=== PATIENT | male | born 1970 | race Caucasian/White ===

== ENCOUNTER 2018-10-10 18:35 | Emergency (ER) | payer OTHER ==
[~2018-10-10] VITALS: Ht 175.3 cm; Wt 159.1 kg
[2018-10-10] MEDS ORDERED: PROAIR HFA0.09 MG/AC IH (19:34)
[2018-10-10] MEDS ORDERED: ADVIL200 MG PO (19:35)
[2018-10-10 19:43] LABS: BASO % 0.4 % (0.0-2.0); EOS # 0.1 (0.0-0.7); EOS % 1.1 % (0-4.0); GRAN # 6.3 (1.4-6.5); GRAN % 76.1 % (42.2-75.2); HEMATOCRIT 43.6 % (42.0-52.0); HEMOGLOBIN 14.3 g/dl (13.5-18.0); LYMPH # 1.1 (1.2-3.4); LYMPH % 13.8 % (20.0-51.0); MEAN CELL VOLUME 87 fl (80.0-100.0); MEAN CORPUSCULAR HEMOGLOBIN 29 pg (27.0-31.0); MEAN CORPUSCULAR HGB CONC 33 g/dl (33.0-37.0); MONO # 0.7 (0.1-0.6); MONO % 8.4 % (1.7-9.3); PLATELET COUNT 217 K/mm3 (130-400); RED BLOOD COUNT 4.99 M/mm3 (4.20-5.60); REDCELL DISTRIBUTION WIDTH-CV 12.5 % (11.5-14.5)
[2018-10-10 19:47] LABS: BILIRUBIN,TOTAL 0.4 mg/dL (0.0-1.0); C-REACTIVE PROTEIN 1.2 mg/dL (0.0-0.9); CALCIUM 9.1 mg/dL (8.4-10.2); CREATININE, serum 0.58 mg/dL (0.66-1.25); POTASSIUM 4.1 mmol/L (3.4-5.0); TOTAL PROTEIN 7.4 gm/dL (6.4-8.2)
[2018-10-10 19:49] LABS: INR 1.1 (0.8-3.0); PROTHROMBIN TIME 12.4 SECONDS (9.7-12.8)
[2018-10-10 19:52] LABS: PARTIAL THROMBOPLASTIN TIME 37.4 SECONDS (26.0-37.0)
[2018-10-10 22:30] LABS: COLLECTION METHOD CLEAN CATCH
[2018-10-10 22:36] LABS: PH 7 (5-8); SQUAMOUS EPITHELIAL 0-2 /hpf; URINE APPEARANCE Clear; URINE BACTERIA None Seen /hpf; URINE BILIRUBIN Negative (NEGATIVE); URINE BLOOD Negative (NEGATIVE); URINE COLOR Straw; URINE GLUCOSE 3+ (NEGATIVE); URINE KETONE Trace (NEGATIVE); URINE LEUKOCYTE ESTERASE Negative (NEGATIVE); URINE NITRATE Negative (NEGATIVE); URINE PROTEIN(semi-quant) Negative (NEGATIVE); URINE RBC 0-2 /hpf; URINE UROBILINOGEN Negative (NEGATIVE)
[2018-10-10] MEDS ORDERED: AMOXICILLIN 8751 TAB PO (23:28)
[2018-10-10] MEDS ORDERED: LEVEMIR FLEX100 U/ML SQ (23:28)
[2018-10-10 23:50] VITALS: BP 171/98; PULSE 103
== END 2018-10-10 23:50 | disposition home or self-care (01) ==
LOC: COL.ER 18:35
PROVIDERS: Emergency Medicine
DX: K42.9 Umbilical hernia without obstruction or gangrene (principal); E11.9 Type 2 diabetes mellitus without complications
CPT/HCPCS: J1815; J7030; Q9967

== ENCOUNTER 2018-11-09 05:57 | Day surgery (SDC) | payer OTHER ==
[~2018-11-09] VITALS: Ht 175.3 cm; Wt 149.9 kg
[~2018-11-09 05:57] MED LIST: ADVIL200 MG PO; AMOXICILLIN 8751 TAB PO; LEVEMIR FLEX100 U/ML SQ; PROAIR HFA0.09 MG/AC IH
[2018-11-09 06:44] VITALS: BP 115/47; PULSE 96; TEMP 98.3
[2018-11-09] MEDS ORDERED: BACTRIM DS 8001 TAB PO (06:59)
[2018-11-09] MEDS ORDERED: GLUCOPHAGE1000 MG PO (07:00)
[2018-11-09] MEDS ORDERED: PRINIVIL10 MG PO (07:01)
[2018-11-09] MEDS ORDERED: LIPITOR 40MG TA40 MG PO (07:01)
[2018-11-09] MEDS ORDERED: TRULICITY1.5 MG/0.5 SQ (07:01)
[2018-11-09 10:25] VITALS: BP 121/63; PULSE 87
--- NOTE | 2018-11-09 10:25 | NUR ---
TO RM 1 PER CART FROM PACU.ALERT ORIENTED X3, TALKING TO AND STAFF. ABDOMINAL BINDER OVER DRESSING. 02 SAT 96% ON 2L PER NC. C/O PAIN 4-5/10. DENIES NEED FOR PAIN MED AT THIS TIME.
[2018-11-09] MEDS ORDERED: NORCO 325 MG-7.1 TAB PO (10:32)
[2018-11-09 10:35] VITALS: TEMP 98.4
[2018-11-09 10:40] VITALS: BP 116/64; PULSE 88
--- NOTE | 2018-11-09 10:40 | NUR ---
RECEIVED WATER AND A APPLE SAUCE. PULLED SELF UP USING SIDE RAILS TO SIT UP HIGHER AND TOLERATED WELL.
[2018-11-09 10:55] VITALS: BP 114/66; PULSE 73
--- NOTE | 2018-11-09 10:55 | NUR ---
ATE 100% AND DRANK WATER RECEIVED 2ND CUP OF WATER
--- NOTE | 2018-11-09 11:00 | NUR ---
RECEIVED 3RD CUP OF WATER.
[2018-11-09 11:10] VITALS: BP 117/63; PULSE 75
--- NOTE | 2018-11-09 11:10 | NUR ---
RESTING QUIETLY RECEIVED ANOTHER CUP OF WATER
--- NOTE | 2018-11-09 11:30 | NUR ---
AMBULATED TO BATHROOM WITH STAND BY ASSIST. BINDER REMAINS IN PLACE. NO DRAINAGE NOTED
--- NOTE | 2018-11-09 11:50 | NUR ---
RECEIVED DISCHARGE INSTRUCTIONS AND VERBALIZED UNDERSTANDING. DISCONTINUED IV AND INT- CATHETER INTACT COVERED IV SITE WITH COTTON BALL AND COBAN. PATIENT GETTING DRESSED
--- NOTE | 2018-11-09 12:20 | NUR ---
DISCHARGED PER WC BY NURSING STAFF TO PRIVATE CAR IN CARE OF - [facility].
== END 2018-11-09 12:28 | disposition home or self-care (01) ==
LOC: SDCO 05:57
DX: K42.0 Umbilical hernia with obstruction, without gangrene (principal); I10 Essential (primary) hypertension; G47.30 Sleep apnea, unspecified; E78.5 Hyperlipidemia, unspecified; E11.9 Type 2 diabetes mellitus without complications; K76.0 Fatty (change of) liver, not elsewhere classified; J45.909 Unspecified asthma, uncomplicated; G47.33 Obstructive sleep apnea (adult) (pediatric); E66.01 Morbid (severe) obesity due to excess calories; Z68.43 Body mass index [BMI] 50.0-59.9, adult; Z79.84 Long term (current) use of oral hypoglycemic drugs; Z86.14 Personal history of Methicillin resistant Staphylococcus aureus infection; Z80.8 Family history of malignant neoplasm of other organs or systems; Z80.42 Family history of malignant neoplasm of prostate; Z83.3 Family history of diabetes mellitus; Z82.49 Family history of ischemic heart disease and other diseases of the circulatory system; Z80.0 Family history of malignant neoplasm of digestive organs
CPT/HCPCS: J0690; J1100; J2250; J2405; J2704; J3010; J7030